=== PATIENT | male | born 1990 | race African-American/Black ===

== ENCOUNTER → 2022-12-11 | Outpatient (CLI) | payer OTHER ==
[2022-12-11 20:27] LABS: HIV 1&2 SCREEN CENTAUR NEGATIVE (NEGATIVE)
[2022-12-12 10:38] LABS: GC DNA AMPLIFICATION NEGATIVE (NEGATIVE)
== END ==
LOC: M WUC 15:21
PROVIDERS: ATTEND Student in an Organized Health Care Education/Training Program
DX: N48.9 Disorder of penis, unspecified (principal)